=== PATIENT | female | born 1965 | race Caucasian/White ===

== ENCOUNTER 2020-01-14 12:03 | Inpatient (IN) | payer OTHER ==
[~2020-01-14] VITALS: Ht 167.6 cm; Wt 142.9 kg
[2020-01-14] VITALS (9 sets, daily range): BP systolic 108–138; BP diastolic 53–69
--- NOTE | 2020-01-14 12:15 | NUR ---
BIB [facility] FROM A CLINIC,S/P SYNCOPAL EPISODE. C/O WEAKNESS AND DIZZINESS X 2 WEEKS,BLOOOD SUGAR 216. PATIENT A/OX4, BREATHING EVEN AND UNLABORED, NO SOB NOTED, CHANGED INTO A GOWN, ATTACHED TO E [place] LAYER. DR. MURRIETA AT BEDSIDE FOR EVAL.
[2020-01-14] MEDS ORDERED: IV NS 0.9% 1,000 ML BAG IV ONE (12:30)
--- NOTE | 2020-01-14 12:30 | NUR ---
IV LINE ESTABLISHED, BLOOD DRAWN AND SENT TO LAB.
--- NOTE | 2020-01-14 12:40 | NUR ---
BOSTON CUTTER AT BEDSIDE FOR XRAY.
[2020-01-14 12:42] LABS: BASOPHILS % (AUTO) 0.9 % (0.0-2.0); EOSINOPHILS % (AUTO) 1.9 % (0.0-6.0); HEMATOCRIT 21 % (33-45); LYMPHOCYTES # (AUTO) 1.3 /CMM (0.8-4.8); LYMPHOCYTES % (AUTO) 16.2 % (20.0-44.0); MEAN CORPUSCULAR HGB CONC 27 g/dl (31.0-36.0); MEAN CORPUSCULAR VOLUME 62 fL (82-100); MONOCYTES % (AUTO) 6.3 % (2.0-12.0); NEUTROPHILS % (AUTO) 74.7 % (43.0-81.0); PLATELET COUNT (AUTO) 383 /CMM (150-450); RED BLOOD CELL COUNT(AUTO) 3.35 MIL/uL (4.0-5.2)
[2020-01-14 12:43] LABS: BASOPHILS # (AUTO) 0.1 /CMM (0.0-0.2); MONOCYTES # (AUTO) 0.5 /CMM (0.1-1.30)
[2020-01-14 12:44] LABS: CALCIUM, SERUM 9.6 mg/dL (8.5-10.1); CARBON DIOXIDE 25 mmol/L (21-32); CHLORIDE 104 mmol/L (98-107); CREATININE 1.7 mg/dL (0.6-1.3); GLUCOSE 186 mg/dL (74-106); POTASSIUM 4.1 mmol/L (3.5-5.1); SODIUM SERUM 141 mmol/L (136-145); UREA NITROGEN, BLOOD 30 mg/dL (7-18)
[2020-01-14 12:47] LABS: HEMOGLOBIN 5.6 g/dL (11.5-14.8)
--- NOTE | 2020-01-14 12:53 | NUR ---
PATIENT REFUSED TO HAVE AN ACCUCHECK DONE.
[2020-01-14] MEDS ORDERED: IV NS 0.9% 1,000 ML IV ONE ×2 (13:30)
[2020-01-14] MEDS ORDERED: AMLO5TAB9 PO (13:36)
[2020-01-14] MEDS ORDERED: ALBU18HF2 IH (13:36)
[2020-01-14] MEDS ORDERED: ASPI-1498 PO (13:36)
[2020-01-14] MEDS ORDERED: METO-357 PO (13:36)
[2020-01-14] MEDS ORDERED: HYDR-4077 PO (13:36)
[2020-01-14] MEDS ORDERED: NICO1PAT44 PO (13:36)
[2020-01-14] MEDS ORDERED: ATOR10TA PO (13:36)
--- NOTE | 2020-01-14 13:36 | NUR ---
paged dr. erik cespedes, waiting for call back
--- NOTE | 2020-01-14 13:46 | NUR ---
COVID RESULT: NEGATIVE
--- NOTE | 2020-01-14 14:02 | NUR ---
REPORT GIVEN TO SUHAIL DANIEL.
--- NOTE | 2020-01-14 14:15 | NUR ---
PATIENT TRANSFERRED TO ROOM 111-2 VIA ACLS PROTOCOL. IN STABLE CONDITION. BP IMPROVED.
[2020-01-14 14:28] LABS: IRON, SERUM 11 ug/dl (50-175); TOTAL IRON BINDING CAPACITY 467 ug/dl (250-450)
--- NOTE | 2020-01-14 14:35 | NUR ---
RN ADMITTING NOTES Received patient from ER via rashlie, Patient is A/Ox4, on room air , SPO2 is 100%, NO SOB, no resp distress noted, complain of weakness, denies pain or discomfort. TELEMONITOR BOX is attached, readings is Sinus Rhythm 94s, IV line noted on R hand, G 18, intact and patent, Skin is intact, bed in lowest position, safety measures in place, call light i reach, will cont to monitor
--- NOTE | 2020-01-14 15:00 | NUR ---
Waiting for blood to be ready
[2020-01-14] MEDS ORDERED: ACETAMINOPHEN 650 MG/20.3 ML UDC NG PRN (15:30)
[2020-01-14] MEDS ORDERED: ONDANSETRON HCL/PF 4 MG/2 ML VIAL IV PRN (15:30)
[2020-01-14] MEDS ORDERED: ACETAMINOPHEN 325 MG TABLET PO PRN (15:30)
[2020-01-14] MEDS: NICOTINE PATCH (21MG) 21 MG PATCH.TD24 TD SCH (15:58)
[2020-01-14] MEDS: PANTOPRAZOLE 40 MG TABLET.DR PO SCH ×2 (15:58→21:30)
[2020-01-14] MEDS ORDERED: IPRATROPIUM NEB FS 0.5 MG/2.5 ML AMPUL.NEB NEB PRN (16:00)
[2020-01-14] MEDS ORDERED: ALBUTEROL FS 2.5 MG/0.5 ML VIAL.NEB NEB PRN (16:00)
--- NOTE | 2020-01-14 16:00 | NUR ---
Spoke with Dr Del Valle need 2 units of blood, waiting for blood bank
--- NOTE | 2020-01-14 18:51 | NUR ---
Received phone call from the lab about blood: READY FOR MAJOR CASE DETECTIVE
--- NOTE | 2020-01-14 18:56 | NUR ---
Will endorse BLOOD TRANSFUSION TO PM SHIFT RN
--- NOTE | 2020-01-14 18:56 | NUR ---
RN CLOSING NOTES Patient remains in bed, A/Ox4, watching TV, denies pain, denies SOB, no cough or distress noted, Medications given, patient had late lunch and dinnerMed recon is done by Dr Del Valle, . Safety measures in pace, bed in lowest position, call light in reach, HOB elevated, will endorse to P shift RN for DOROTEO
[2020-01-14 19:37] LABS: BAND % (MANUAL) 1 % (0.0-5.0); LYMPHOCYTES % (MANUAL) 25 % (16-48); MONOCYTES % (MANUAL) 3 % (0-11.0); NEUTROPHILS % (MANUAL) 71 (42-76)
[2020-01-14] MEDS: ATORVASTATIN 10 MG TABLET PO SCH (21:30)
--- NOTE | 2020-01-14 22:20 | NUR ---
2220 DR. MARIEE CALLED AND ASKED PATIENT OF OK TO PREP FOR COLONOSCOPY. PATIENT REFUSED STATING " I'M NOT POOPING BLOOD RIGHT NOW." PER DR. MARIEE HE WILL COME AND SEE PATIENT AND TALK TO HER AT BEDSIDE TOMORROW.
[2020-01-14] MEDS: ALBUTEROL FS 2.5 MG/0.5 ML VIAL.NEB NEB SCH (23:07)
[2020-01-14] MEDS: IPRATROPIUM NEB FS 0.5 MG/2.5 ML AMPUL.NEB NEB SCH (23:07)
[2020-01-15] VITALS (17 sets, daily range): BP systolic 98–166; BP diastolic 48–87
--- NOTE | 2020-01-15 05:55 | NUR ---
RN notes Alert and oriented, verbally able to communicate needs. In bed, comfortably resting with no distress noted. Room air well tolerated. Transfused two packs of RBC, tolerated well. No side effects noted. No complaint of pain or discomfort. Kept clean and dry. Will endorse to next shift for continuity of care.
[2020-01-15] MEDS ORDERED: SORBITOL SOLUTION 30 ML PO ONE (06:00)
--- NOTE | 2020-01-15 07:05 | NUR ---
RN NOTES RECEIVED ON BED, RESTING IN BED, A/Ox4, ON RA , RESPIRATION EVEN AND UNLABORED, ON TELE SR HR IN 90'S , NO DISTRESS NOTED, SR UP X3, CALL LIGHT WITHIN EASY REACH, BED LOCKED AND IN LOWEST POSITION, CONTINUE TO MONITOR.
[2020-01-15] MEDS: ALBUTEROL FS 2.5 MG/0.5 ML VIAL.NEB NEB SCH ×4 (07:35→23:55)
[2020-01-15] MEDS: IPRATROPIUM NEB FS 0.5 MG/2.5 ML AMPUL.NEB NEB SCH ×4 (07:35→23:54)
[2020-01-15] MEDS: PANTOPRAZOLE 40 MG TABLET.DR PO SCH ×4 (08:22→21:10)
[2020-01-15] MEDS: NICOTINE PATCH (21MG) 21 MG PATCH.TD24 TD SCH (08:22)
[2020-01-15] MEDS ORDERED: NICOTINE PATCH (14MG) 14 MG PATCH.TD24 TD SCH (09:00)
[2020-01-15 09:11] LABS: BASOPHILS # (AUTO) 0.1 /CMM (0.0-0.2); BASOPHILS % (AUTO) 0.8 % (0.0-2.0); EOSINOPHILS % (AUTO) 2.8 % (0.0-6.0); HEMATOCRIT 23 % (33-45); LYMPHOCYTES # (AUTO) 1.2 /CMM (0.8-4.8); LYMPHOCYTES % (AUTO) 19.3 % (20.0-44.0); MEAN CORPUSCULAR HGB CONC 29 g/dl (31.0-36.0); MEAN CORPUSCULAR VOLUME 68 fL (82-100); MONOCYTES # (AUTO) 0.4 /CMM (0.1-1.30); MONOCYTES % (AUTO) 5.9 % (2.0-12.0); NEUTROPHILS # (AUTO) 4.6 /CMM (1.8-8.9); NEUTROPHILS % (AUTO) 71.2 % (43.0-81.0); PLATELET COUNT (AUTO) 276 /CMM (150-450); RED BLOOD CELL COUNT(AUTO) 3.44 MIL/uL (4.0-5.2); WHITE BLOOD COUNT (AUTO) 6.5 K/uL (4.3-11.0)
[2020-01-15 09:25] LABS: ALBUMIN 2.5 g/dL (3.4-5.0); BILIRUBIN,TOTAL 0.3 mg/dL (0.2-1.0); CREATININE 1.2 mg/dL (0.6-1.3); MAGNESIUM 2.1 mg/dL (1.8-2.4); TOTAL PROTEIN, SERUM 6.4 g/dL (6.4-8.2)
[2020-01-15 09:34] LABS: HEMOGLOBIN 6.8 g/dL (11.5-14.8)
--- NOTE | 2020-01-15 09:50 | NUR ---
RN NOTES DR MANDUJANO NOTIFED REGARDING HEMOGLOBIN 6.8. NEW ORDER RECEIVED .CONTINUE TO MONITOR.
--- NOTE | 2020-01-15 12:45 | NUR ---
RN NOTES PT REFUSED FREQUENT VSS CHECK DURING BLOOD TRANSFUSION, STATED BP CUFF IS PAINFUL TO HER ARM . PT AGREED TO HAVE VSS CHECK Q 30 TO ONE HOUR CHECK , CONTINUE TO MONITOR .
[2020-01-15] MEDS: AMLODIPINE BESYLATE 5 MG TABLET PO SCH (17:22)
[2020-01-15] MEDS: CYANOCOBALAMIN 1,000 MCG/ML VIAL IM SCH (18:18)
--- NOTE | 2020-01-15 18:21 | NUR ---
RN NOTES PT RECEIVED TWO UNITS OF PRBC'S ON THIS SHIFT, TOLERATED WELL, NO COMPLICATION NOTED , DENIES ANY DISTRESS, PT IS UP TO BATHROOM WITH ASSIST , VOIDING WELL, SR UP x3, CALL LIGHT WITHIN EASY REACH, BED LOCKED AND IN LOWEST POSITION, WILL ENDORSE TO DRY ROOM OPERATOR NURSE FOR CONTINUITY OF CARE
[2020-01-15] MEDS ORDERED: PEG 3350/NA SULF,BICARB,CL/KCL 4,000 ML BOTTLE PO ONE ×2 (20:00)
--- NOTE | 2020-01-15 20:00 | NUR ---
RN NOTES RECEIVED in BED, A/Ox4, ON RA , RESPIRATION EVEN AND UNLABORED, ON TELE SR HR IN 91S , NO DISTRESS NOTED, SR UP X2 CALL LIGHT WITHIN EASY REACH, BED LOCKED AND IN LOWEST POSITION, CONTINUE TO MONITOR. PTS NPO EXCEPT MEDS ,PTS GOING FOR EGD AND COLONOSCOPY IN AM NPO POST MN INSTRUCTED , GOLITELY STARTED AT 8PM FOR BOWEL PREP ,PTS ABLE TO DRINK .ALL NEEDS ATTENDED TOO ,PER ENDORSEMENT PT RECEIVED TOTAL OF 4 UNITS OF PRBC ,FOR CBC BMP IN AM.V/S STABLE AND AFEBRILE WILL CONTINUE TO MONITOR PTS.PROTONIX MEDICATION WAS NOT GIVEN D/T PTS REFUSAL .
[2020-01-15] MEDS: ATORVASTATIN 10 MG TABLET PO SCH ×3 (21:10→22:27)
--- NOTE | 2020-01-15 22:00 | NUR ---
gema rn notes pts noted with no change of condition , no sob no distress noted no c/o of pain needs attended too will continue to monitor pts.
[2020-01-16] VITALS: BP 122/85
--- NOTE | 2020-01-16 01:00 | NUR ---
gema rn notes golitely almost done ,pts had bowel movement x 1 will continue to monitor.
[2020-01-16 04:00] VITALS: BP 146/88
--- NOTE | 2020-01-16 05:33 | NUR ---
gema rn notes had bowel movement noted with lliquid brown color output.
[2020-01-16] MEDS ORDERED: SORBITOL SOLUTION 30 ML PO ONE (06:00)
--- NOTE | 2020-01-16 06:47 | NUR ---
OSIEL RN NOTES PATIENT REMAINS IN ROOM. R/A A/OX 4 NO SIGNS OF RESPIRATORY DISTRESS. SAFETY MEASURES IMPLEMENTED, BED IN LOWEST POSITION, LOCKED, SIDE RAILS UP, CALL LIGHT WITHIN REACH. ALL NEEDS AND ORDERS ADDRESSED DURING THE SHIFT. ALL DUE MEDS GIVEN ORDERED & SCHEDULED ; PATIENT TOLERATED WELL.PATIENT KEPT CLEAN AND COMFORTABLE WITHIN THE SHIFT. ENDORSED TO INCOMING SHIFT RN FOR CONTINUITY OF CARE.PTS FOR EGD COLONOSCOPY TODAY , CONSENTED FOR PROCEDURE NPO MAINTAINED.
[2020-01-16 06:48] LABS: BASOPHILS # (AUTO) 0.1 /CMM (0.0-0.2); EOSINOPHILS % (AUTO) 3.6 % (0.0-6.0); HEMATOCRIT 28 % (33-45); HEMOGLOBIN 8.6 g/dL (11.5-14.8); LYMPHOCYTES # (AUTO) 1.6 /CMM (0.8-4.8); LYMPHOCYTES % (AUTO) 30.1 % (20.0-44.0); MEAN CORPUSCULAR HGB CONC 31 g/dl (31.0-36.0); MEAN CORPUSCULAR VOLUME 70 fL (82-100); MONOCYTES # (AUTO) 0.5 /CMM (0.1-1.30); MONOCYTES % (AUTO) 9.4 % (2.0-12.0); NEUTROPHILS # (AUTO) 2.9 /CMM (1.8-8.9); NEUTROPHILS % (AUTO) 55.9 % (43.0-81.0); PLATELET COUNT (AUTO) 272 /CMM (150-450); RED BLOOD CELL COUNT(AUTO) 3.99 MIL/uL (4.0-5.2); WHITE BLOOD COUNT (AUTO) 5.2 K/uL (4.3-11.0)
[2020-01-16 07:09] LABS: CREATININE 1.1 mg/dL (0.6-1.3); POTASSIUM 4.2 mmol/L (3.5-5.1)
[2020-01-16] MEDS: IPRATROPIUM NEB FS 0.5 MG/2.5 ML AMPUL.NEB NEB SCH ×3 (07:35→23:30)
[2020-01-16] MEDS: ALBUTEROL FS 2.5 MG/0.5 ML VIAL.NEB NEB SCH ×3 (07:35→23:30)
--- NOTE | 2020-01-16 07:55 | NUR ---
PT REFUSED RESP TX ATT. NO S/S OF SOB NOTED. WILL CONT TO MONITOR Addendum: 01/16/20 at 0756 by MG RICHARDSON RT Amended: Links added.
[2020-01-16] MEDS: CYANOCOBALAMIN 1,000 MCG/ML VIAL IM SCH (08:19)
[2020-01-16] MEDS: PANTOPRAZOLE 40 MG TABLET.DR PO SCH ×2 (08:19→21:00)
[2020-01-16] MEDS: NICOTINE PATCH (21MG) 21 MG PATCH.TD24 TD SCH (08:19)
[2020-01-16] MEDS ORDERED: ANESTHESIA TRAY IN PYXIS 1 EA TRAY MC ONE (10:19)
[2020-01-16 10:26] VITALS: BP 160/84
--- NOTE | 2020-01-16 10:33 | NUR ---
0800 pt was received asleep in bed, refused to have her VS checked at this time. There is still about 800 cc left in the Colyte bottle. Pt stated her last BM was clear but RN was not able to see because pt flushed the toilet. Pt was discouraged to drink anymore after 730, she just had some ice chips. 1036 pt was taken to OR for colonoscopy and EGD, consents are in the chart. VS was taken and recorded. MANAGER CREDIT was informed pt's last fluid intake was at 0730 with some ice chips and was not able to finish the Colyte. Addendum: 01/16/20 at 1531 by YE REYES RN 1530 came back from COLO/EGD at 1315, per Amina RN showed gastric erosion, taken biopsies from stomach and colon. Was given Propofol by wolf, Pt is sleepy but easily awaken, oriented x 4. Denies any pain Addendum: 01/16/20 at 1829 by YE REYES RN 1827 pt came back from COLO/EGD at 1330. Per MANAGER CREDIT pt had gastritis and biopsies were done from the stomach and colon. Also advised to follow up to Dr. Walsh's office upon discharge. Pt had dinner and late lunch, tolerated well. Pt denies any pain or discomfort aside from being tired due to anes. Will give report to restaurant shift supervisor for DOROTEO.
[2020-01-16] MEDS ORDERED: FAMOTIDINE/PF INJ 20 MG/2 ML VIAL IV ONE (11:28)
[2020-01-16 16:00] VITALS: BP 162/89
[2020-01-16] MEDS: AMLODIPINE BESYLATE 5 MG TABLET PO SCH (17:49)
[2020-01-16 20:00] VITALS: BP 140/90
--- NOTE | 2020-01-16 20:00 | NUR ---
OSIEL RN NOTES RECEIVED in BED, A/Ox4, ON RA , RESPIRATION EVEN AND UNLABORED, ON TELE SR HR IN 90'S , NO DISTRESS NOTED, SR UP X2 CALL LIGHT WITHIN EASY REACH, BED LOCKED AND IN LOWEST POSITION, CONTINUE TO MONITOR,PTS S/P EGD AND COLONOSCOPY TODAY WITH FINDING GASTRIC EROISION NO BLEEDING NOTED .ALL NEEDS ATTENDED TOO ,V/S STABLE AND AFEBRILE WILL CONTINUE TO MONITOR .
--- NOTE | 2020-01-16 21:09 | NUR ---
OSIEL RN NOTES PROTONIX MEDICATION FOR 9PM DOSE WAS NOT GIVEN D/T PTS REFUSAL.
--- NOTE | 2020-01-16 22:00 | NUR ---
gema rn notes due med given as ordered, pt in bed awake no randal noted at this time .
[2020-01-16] MEDS: ATORVASTATIN 10 MG TABLET PO SCH (22:29)
[2020-01-17] VITALS: BP 136/85
[2020-01-17 04:00] VITALS: BP 140/80
--- NOTE | 2020-01-17 05:09 | NUR ---
OSIEL RN NOTES PT IN BED SLEEPING COMFORTABLY,NO DOROTEO NOTED.
--- NOTE | 2020-01-17 05:11 | NUR ---
OSIEL RN NOTES PTS IN BED AWAKE V/S STABLE AFEBRILE NO SOB NO DISTRESS NOTED WILL ENDORSE TO RN DAY SHIFT FOR CONTINUITY OF CARE.
[2020-01-17 07:05] LABS: BASOPHILS # (AUTO) 0.1 /CMM (0.0-0.2); BASOPHILS % (AUTO) 2.1 % (0.0-2.0); EOSINOPHILS % (AUTO) 3.8 % (0.0-6.0); HEMATOCRIT 29 % (33-45); LYMPHOCYTES # (AUTO) 1.3 /CMM (0.8-4.8); LYMPHOCYTES % (AUTO) 23.6 % (20.0-44.0); MEAN CORPUSCULAR HGB CONC 31 g/dl (31.0-36.0); MEAN CORPUSCULAR VOLUME 69 fL (82-100); MONOCYTES # (AUTO) 0.5 /CMM (0.1-1.30); NEUTROPHILS # (AUTO) 3.4 /CMM (1.8-8.9); NEUTROPHILS % (AUTO) 61.5 % (43.0-81.0); PLATELET COUNT (AUTO) 272 /CMM (150-450); RED BLOOD CELL COUNT(AUTO) 4.22 MIL/uL (4.0-5.2); WHITE BLOOD COUNT (AUTO) 5.5 K/uL (4.3-11.0)
[2020-01-17] MEDS: IPRATROPIUM NEB FS 0.5 MG/2.5 ML AMPUL.NEB NEB SCH (07:35)
[2020-01-17] MEDS: ALBUTEROL FS 2.5 MG/0.5 ML VIAL.NEB NEB SCH (07:35)
--- NOTE | 2020-01-17 07:38 | NUR ---
RELATIONS MGR NOTE PATIENT IN BED ALERT, ORIENTED X4 ON RA, NO SOb NOTED AT THIS TIME ,ON TELEMONITOR SR , RT Ac hl intact and flushed well ,no c\o discomfort wants to go home ,will report to md , all needs attended , bed in lowest and locked position, call light withihn reach ,plan of care discussed with patient
[2020-01-17 08:00] VITALS: BP 154/94
[2020-01-17] MEDS: CYANOCOBALAMIN 1,000 MCG/ML VIAL IM SCH (08:13)
[2020-01-17] MEDS: PANTOPRAZOLE 40 MG TABLET.DR PO SCH (08:14)
[2020-01-17 08:29] LABS: ALBUMIN 2.8 g/dL (3.4-5.0); BILIRUBIN,TOTAL 0.5 mg/dL (0.2-1.0); CALCIUM, SERUM 8.3 mg/dL (8.5-10.1); CREATININE 1.1 mg/dL (0.6-1.3); POTASSIUM 4.5 mmol/L (3.5-5.1); TOTAL PROTEIN, SERUM 6.8 g/dL (6.4-8.2)
[2020-01-17] MEDS: NICOTINE PATCH (21MG) 21 MG PATCH.TD24 TD SCH (09:14)
--- NOTE | 2020-01-17 09:19 | NUR ---
WATER SYSTEM OPERATOR NOTE WANTS TO GO SMOKING BUT EXPLAINED THAT RISK OF SMOKING BUT STILL NONCOMPLIANT AND WANT TO SMOKE, SIGNED CONSENT FOR SMOKING, WILL INFORM TO MD
--- NOTE | 2020-01-17 10:57 | NUR ---
telephone clerk note dr cespedes at bedside with order to d\c home ,order carried out , d\c instruction given understood , px given ,and explained home and new medication and possible side effects, education form about medication and side effects given and explained to patient, tele removed , belonging sighed, instructed to f\u with gi transmission supervisor and primary care doctor
[2020-01-17 12:00] VITALS: BP 154/94
--- NOTE | 2020-01-17 12:30 | NUR ---
color television console monitor note discharge instruction given to patient, understood ,hl is removed, no bleeding noted tele is removed bellowing signed, taken patient to lobby with stable condition, friend nelly poultry picking machine tender patient, px given to patient and explained how to use ,understood
[2020-01-17 14:06] LABS: EOSINOPHILS % (MANUAL) 1 % (0-4); LYMPHOCYTES % (MANUAL) 26 % (16-48); MONOCYTES % (MANUAL) 5 % (0-11.0); NEUTROPHILS % (MANUAL) 68 (42-76)
== END 2020-01-17 13:00 | disposition home or self-care (01) | DRG 663 ==
LOC: ER 12:07 → TELE1 13:55 → MERGE 13:55 → TELE1 14:24 → TELE-TD 20:45 → TELE1 01-17 06:37
PROVIDERS: ADMIT Internal Medicine; ATTEND Internal Medicine
DX: D50.9 Iron deficiency anemia, unspecified (principal); I12.9 Hypertensive chronic kidney disease with stage 1 through stage 4 chronic kidney disease, or unspecified chronic kidney disease; F17.210 Nicotine dependence, cigarettes, uncomplicated; J44.9 Chronic obstructive pulmonary disease, unspecified; I25.2 Old myocardial infarction; E66.01 Morbid (severe) obesity due to excess calories; Z68.43 Body mass index [BMI] 50.0-59.9, adult; E11.22 Type 2 diabetes mellitus with diabetic chronic kidney disease; E53.8 Deficiency of other specified B group vitamins; I25.10 Atherosclerotic heart disease of native coronary artery without angina pectoris; F32.9 Major depressive disorder, single episode, unspecified; E78.5 Hyperlipidemia, unspecified; N18.2 Chronic kidney disease, stage 2 (mild); N17.9 Acute kidney failure, unspecified; K64.8 Other hemorrhoids; B18.2 Chronic viral hepatitis C; K25.9 Gastric ulcer, unspecified as acute or chronic, without hemorrhage or perforation; K29.70 Gastritis, unspecified, without bleeding; K44.9 Diaphragmatic hernia without obstruction or gangrene; E11.65 Type 2 diabetes mellitus with hyperglycemia; K57.30 Diverticulosis of large intestine without perforation or abscess without bleeding; I95.9 Hypotension, unspecified
CPT/HCPCS: 36415; 71045-TC; 80048-TC; 80053-TC; 82378; 83540-TC; 83735-TC; 84443-TC; 84484-TC; 85025-TC; 85045-TC; 85610-TC; 86803; 86850-TC; 87081-TC; 88305-TC; 93307-TC; 94799-TC; C9803-CS; G0378; J0330; J2704; J3420; J3490; J7030; J7040; J7050; P9016-BL

== ENCOUNTER 2020-11-10 02:20 | Emergency (ER) | payer OTHER ==
[~2020-11-10] VITALS: Ht 170.2 cm; Wt 136.1 kg
[~2020-11-10 02:20] MED LIST: ALBU18HF2 IH; AMLO-212 PO; ASPI-1498 PO; ATOR10TA PO; HYDR-4077 PO; METO-357 PO; NICO1PAT44 PO
[2020-11-10 02:26] VITALS: BP 148/84
[2020-11-10] MEDS ORDERED: SULF1TAB48 PO (02:37)
== END 2020-11-10 02:55 | disposition home or self-care (01) ==
LOC: ER 02:20
DX: A49.02 Methicillin resistant Staphylococcus aureus infection, unspecified site (principal); I10 Essential (primary) hypertension; D64.9 Anemia, unspecified; F17.200 Nicotine dependence, unspecified, uncomplicated; Z98.890 Other specified postprocedural states; Z90.49 Acquired absence of other specified parts of digestive tract; Z88.8 Allergy status to other drugs, medicaments and biological substances; Z60.2 Problems related to living alone; Z79.899 Other long term (current) drug therapy

== ENCOUNTER 2021-01-20 15:11 | Emergency (ER) | payer OTHER ==
[~2021-01-20] VITALS: Ht 170.2 cm; Wt 140.6 kg
[~2021-01-20 15:11] MED LIST changes: +SULF1TAB48 PO
[2021-01-20 15:23] VITALS: BP 165/96
--- NOTE | 2021-01-20 15:27 | NUR ---
OF TO ER CHAIR 2, C/O RT SHOULDER PAIN S/P REACHING FROM BEHIND, AAOX4, BREATHING EVEN AND NON LABORED
[2021-01-20] MEDS ORDERED: IBUPROFEN 600 MG TABLET ONE (16:05)
[2021-01-20] MEDS: IBUPROFEN 600 MG TABLET PO ONE (16:10)
[2021-01-20] MEDS ORDERED: NAPR-1009 PO (16:51)
== END 2021-01-20 17:00 | disposition home or self-care (01) ==
LOC: ER 15:14
DX: M25.511 Pain in right shoulder (principal); I10 Essential (primary) hypertension; F17.200 Nicotine dependence, unspecified, uncomplicated; Z98.890 Other specified postprocedural states; Z90.49 Acquired absence of other specified parts of digestive tract; Z60.2 Problems related to living alone; Z79.82 Long term (current) use of aspirin; Z79.899 Other long term (current) drug therapy
CPT/HCPCS: 73030-TC

== ENCOUNTER 2021-02-22 17:38 | Emergency (ER) | payer OTHER ==
[~2021-02-22] VITALS: Ht 170.2 cm; Wt 140.6 kg
[~2021-02-22 17:38] MED LIST changes: +NAPR-1009 PO
--- NOTE | 2021-02-22 18:41 | NUR ---
DR PEREZ AT THE BEDSIDE
--- NOTE | 2021-02-22 18:42 | NUR ---
STARTED LINE, BLOOD SPECIMEN COLLECTED AND SENT TO THE LAB. THE LINE IS SALINE LOCKED.
[2021-02-22 18:49] LABS: BASOPHILS # (AUTO) 0.1 K/uL (0.0-0.2); BASOPHILS % (AUTO) 1.2 % (0.0-2.0); HEMATOCRIT 27 % (33-45); HEMOGLOBIN 7.5 g/dL (11.5-14.8); LYMPHOCYTES # (AUTO) 1.4 K/uL (0.8-4.8); LYMPHOCYTES % (AUTO) 19.4 % (20.0-44.0); MEAN CORPUSCULAR HGB CONC 28 g/dl (31.0-36.0); MEAN CORPUSCULAR VOLUME 63 fL (82-100); MONOCYTES # (AUTO) 0.7 K/uL (0.1-1.30); NEUTROPHILS # (AUTO) 4.7 K/uL (1.8-8.9); NEUTROPHILS % (AUTO) 64.4 % (43.0-81.0); PLATELET COUNT (AUTO) 401 K/uL (150-450); RED BLOOD CELL COUNT(AUTO) 4.33 MIL/uL (4.0-5.2); WHITE BLOOD COUNT (AUTO) 7.3 K/uL (4.3-11.0)
[2021-02-22 19:00] LABS: CALCIUM, SERUM 8.6 mg/dL (8.5-10.1); CREATININE 1.4 mg/dL (0.6-1.3); POTASSIUM 4.2 mmol/L (3.5-5.1)
[2021-02-22 19:06] LABS: ALBUMIN 2.8 g/dL (3.4-5.0); BILIRUBIN,DIRECT 0.1 mg/dL (0.0-0.2); BILIRUBIN,TOTAL 0.2 mg/dL (0.2-1.0); TOTAL PROTEIN, SERUM 7.8 g/dL (6.4-8.2)
--- NOTE | 2021-02-22 19:16 | NUR ---
REPORT GIVEN TO NURSE LEA FOR DOROTEO
--- NOTE | 2021-02-22 20:28 | NUR ---
Patient discharged to home in stable condition. Written and verbal after care instructions given. Patient verbalizes understanding of instruction.
[2021-02-22 20:31] LABS: EOSINOPHILS % (MANUAL) 5 % (0-4); LYMPHOCYTES % (MANUAL) 24 % (16-48); MONOCYTES % (MANUAL) 10 % (0-11.0); NEUTROPHILS % (MANUAL) 61 (42-76)
[2021-02-23 15:36] VITALS: BP 154/85
== END 2021-02-22 20:28 | disposition home or self-care (01) ==
LOC: ER 17:38
DX: D64.9 Anemia, unspecified (principal); E78.5 Hyperlipidemia, unspecified; I10 Essential (primary) hypertension; F17.200 Nicotine dependence, unspecified, uncomplicated; Z90.49 Acquired absence of other specified parts of digestive tract; Z98.890 Other specified postprocedural states; Z60.2 Problems related to living alone; Z79.899 Other long term (current) drug therapy; Z79.82 Long term (current) use of aspirin
CPT/HCPCS: 36415; 80048-TC; 80076-TC; 83690-TC; 85025-TC; 85730-TC; 86850-TC

== ENCOUNTER 2022-01-31 09:27 | Inpatient (IN) | payer OTHER ==
[~2022-01-31] VITALS: Ht 170.2 cm; Wt 136.1 kg
--- NOTE | 2022-01-31 09:41 | NUR ---
DR ADAMS AT BEDSIDE FOR EVAL
--- NOTE | 2022-01-31 09:45 | NUR ---
TECH AT BEDSIDE FOR EKG
--- NOTE | 2022-01-31 09:47 | NUR ---
CHEMISTRY LAB INSTRUCTOR AT BEDSIDE FOR XRAY
[2022-01-31 09:51] LABS: ABG BASE EXCESS 0.3 mmol/L; ABG PCO2 34.6 mmHg (35.0-45.0); ABG PH 7.455 (7.350-7.450); ABG PO2 69.6 mmHg (75.0-100.0); COHb 0.9 % (0.5-1.5); MetHb 0.1 % (0.0-1.5); O2Hb 92.4 % (94.0-97.0); SITE, ABG Right Brachial; VENT MODE, BG NASAL CANNULA
--- NOTE | 2022-01-31 09:51 | NUR ---
MOVE SHEET SUBMITTED
[2022-01-31] MEDS ORDERED: ONDANSETRON HCL/PF 4 MG/2 ML VIAL ONE (09:52)
[2022-01-31] MEDS ORDERED: CEFTRIAXONE 1GM BAG (ER ONLY) 50 ML IV ONE ×2 (09:52→10:00)
[2022-01-31] MEDS ORDERED: HYDROMORPHONE 1 MG/1 ML DISP.SYRIN ONE (09:58)
[2022-01-31] MEDS ORDERED: ONDANSETRON HCL/PF 4 MG/2 ML VIAL IVP ONE (10:00)
[2022-01-31] MEDS ORDERED: AZITHROMYCIN 500 MG in IV D5W 250 ML IV ONE (10:00)
[2022-01-31] MEDS ORDERED: HYDROMORPHONE 1 MG/1 ML DISP.SYRIN IV ONE (10:00)
[2022-01-31 10:07] LABS: BASOPHILS # (AUTO) 0.1 K/uL (0.0-0.2); BASOPHILS % (AUTO) 0.5 % (0.0-2.0); EOSINOPHILS % (AUTO) 1.8 % (0.0-6.0); HEMATOCRIT 36 % (33-45); HEMOGLOBIN 10.9 g/dL (11.5-14.8); LYMPHOCYTES # (AUTO) 0.7 K/uL (0.8-4.8); MEAN CORPUSCULAR HGB CONC 30 g/dl (31.0-36.0); MEAN CORPUSCULAR VOLUME 71 fL (82-100); MONOCYTES # (AUTO) 0.9 K/uL (0.1-1.30); MONOCYTES % (AUTO) 6.4 % (2.0-12.0); NEUTROPHILS # (AUTO) 11.5 K/uL (1.8-8.9); NEUTROPHILS % (AUTO) 86.3 % (43.0-81.0); PLATELET COUNT (AUTO) 456 K/uL (150-450); RED BLOOD CELL COUNT(AUTO) 5.12 MIL/uL (4.0-5.2); WHITE BLOOD COUNT (AUTO) 13.3 K/uL (4.3-11.0)
[2022-01-31 10:16] LABS: CALCIUM, SERUM 9.2 mg/dL (8.5-10.1); CARBON DIOXIDE 29 mmol/L (21-32); CHLORIDE 97 mmol/L (98-107); CREATININE 1.2 mg/dL (0.6-1.3); GLUCOSE 166 mg/dL (74-106); SODIUM SERUM 134 mmol/L (136-145); UREA NITROGEN, BLOOD 13 mg/dL (7-18)
--- NOTE | 2022-01-31 10:19 | NUR ---
COVID SWAB COLLECTED AND SENT TO LAB
[2022-01-31 10:25] LABS: ALANINE AMINOTRANSFERASE 14 U/L (12-78); ALBUMIN 2.3 g/dL (3.4-5.0); ALKALINE PHOSPHATASE 98 U/L (46-116); ASPARTATE AMINOTRANSFERASE 28 U/L (15-37); BILIRUBIN,DIRECT 0.2 mg/dL (0.0-0.2); BILIRUBIN,TOTAL 0.6 mg/dL (0.2-1.0); TOTAL PROTEIN, SERUM 7.9 g/dL (6.4-8.2)
--- NOTE | 2022-01-31 10:55 | NUR ---
URINE SAMPLE COLLECTED AND SENT TO LAB
[2022-01-31 11:23] LABS: BILIRUBIN,URINE MODERATE (NEGATIVE); COLOR,URINE YELLOW (YELLOW); LEUKOCYTE ESTERASE ,URINE NEGATIVE (NEGATIVE); NITRITE, URINE NEGATIVE (NEGATIVE); PROTEIN,URINE 100 mg/dl (NEGATIVE); UGLUCOSE NEGATIVE (NEGATIVE)
[2022-01-31] MEDS ORDERED: IPRATROPIUM NEB FS 0.5 MG/2.5 ML AMPUL.NEB NEB PRN (12:00)
[2022-01-31] MEDS ORDERED: ZOLPIDEM TARTRATE 5 MG TABLET PO PRN (12:00)
[2022-01-31] MEDS ORDERED: HYDROCODONE/APAP 10/325MG TABLET PO PRN (12:00)
[2022-01-31] MEDS ORDERED: ACETAMINOPHEN 325 MG TABLET PO PRN (12:00)
[2022-01-31] MEDS ORDERED: CEFTRIAXONE 1 G in IV D5W 50 ML IV SCH (12:00)
[2022-01-31] MEDS ORDERED: ALBUTEROL FS 2.5 MG/0.5 ML VIAL.NEB NEB PRN (12:00)
[2022-01-31] MEDS ORDERED: ONDANSETRON HCL/PF 4 MG/2 ML VIAL IVP PRN (12:00)
[2022-01-31] MEDS ORDERED: HYDROCODONE/APAP 5/325MG TABLET PO PRN (12:00)
[2022-01-31] MEDS ORDERED: Z GUARD REMEDY 4 OZ OINT TP PRN (12:00)
[2022-01-31] MEDS ORDERED: MAGNESIUM HYDROXIDE 30 ML UDC PO PRN (12:00)
[2022-01-31] MEDS ORDERED: MAG HYDROX/AL HYDROX/SIMETH 30 ML UDC PO PRN (12:00)
[2022-01-31 12:04] LABS: BACTERIA,URINE Few /HPF (None Seen); HYALINE CASTS, URINE Few /LPF (None Seen); SQUAMOUS EPITHELIAL CELL,UR Moderate /HPF (None Seen)
--- NOTE | 2022-01-31 12:10 | NUR ---
SPOKE WITH KAREN ELLIS [phone] GOT VERBAL AUTHORIATION [id number]
--- NOTE | 2022-01-31 13:20 | NUR ---
[facility] CALLED COMPLIANCE EXAMINER PAGED.
--- NOTE | 2022-01-31 13:22 | NUR ---
LATE LUNCH PROVIDED TO PT, JAMEL WELL
[2022-01-31] MEDS ORDERED: methylPREDNISolone SOD SUCC 40 MG/ML VIAL ONE (13:25)
[2022-01-31] MEDS: methylPREDNISolone SOD SUCC 125 MG/2ML VIAL IV SCH ×2 (13:26→21:24)
[2022-01-31 13:44] LABS: BAND % (MANUAL) 5 % (0.0-5.0); EOSINOPHILS % (MANUAL) 1 % (0-4); LYMPHOCYTES % (MANUAL) 5 % (16-48); MONOCYTES % (MANUAL) 4 % (0-11.0); NEUTROPHILS % (MANUAL) 85 (42-76)
--- NOTE | 2022-01-31 15:23 | NUR ---
BED GIVEN 308-1
--- NOTE | 2022-01-31 15:44 | NUR ---
PT REPORT GIVEN TO FREDY LANE
--- NOTE | 2022-01-31 16:09 | NUR ---
PT TRANSFERRED TO 308-1 VIA [place] ACLS PROTOCOL. WARM HANDOFF GIVEN TO FREDY LANE
--- NOTE | 2022-01-31 19:07 | NUR ---
RN NOTE PATIENT WAS TRANSFERRED TO UNIT FROM ER VIA [facility] WITH NO SIGNED OF DISTRESS NOTED. PATIENT WAS ORIENTED TO ROOM SETUP AND EDUCATED ON THE USE OF CALL LIGHT. V/S TAKEN, STABLE AND RECORDED. PATIENT REFUSED EXTERNAL SEWAGE RETICULATION DRAFTING OFFICER. PATIENT DID NOT WANT HER PURSED TO BE CHECKED, ONLY REMOVED MEDICATION FROM HER PURSED AND WAS TAKEN TO PHARMACY. SKIN ASSESSMENT DONE AND PICTURES TAKEN. PATIENT IS AWAKE IN BED RESTING, REFUSED TO WEAR GOWN, PATIENT STATED SHE DOES NOT WANT TO BE BOTHER. A/O X4. NO S/S OF PAIN NOTED AT THIS TIME ON 4L OXYGEN VIA NC, NO DISTRESS OR SHORTNESS OF BREATH NOTED. IV ACCESS ON LAC #20G-SL, INTACT, PATENT AND FLUSHING WELL. FALL AND SAFETY MEASURES IN PLACE, BED ALARM ON, BED IN LOW AND LOCK POSITION, CALL LIGHT AND TABLE WITHIN EASY REACH, SIDE RAILS UP X2. WILL ENDORSE TO LEAD OPERATOR.
[2022-01-31 19:57] VITALS: BP 126/75
--- NOTE | 2022-01-31 20:00 | NUR ---
TERMINAL WORKER NOTE PATIENT IS AWAKE AND LYING IN BED. REFUSES TO WEAR GOWN. A/O X4. NO DYSPNEA OR SOB NOTED. SpO2= 95% ON 4L OXYGEN VIA NC. IV ACCESS TO LAC #20G-SL. LINE IS INTACT AND PATENT. PATIENT ADAMANTLY REFUSES TO WEAR THE TELE MONITOR ALTHOUGH RISKS OF NOT WEARING IT HAVE BEEN EXPLAINED. SHE VERBALIZES UNDERSTANDING. SAFETY MEASURES IN PLACE: BED ALARM ON, BED IN LOWEST AND LOCKED POSITION, CALL LIGHT AND TABLE WITHIN EASY REACH, SIDE RAILS UP X2. WILL CONTINUE TO MONITOR.
[2022-01-31 20:41] VITALS: BP 102/60
[2022-01-31] MEDS: MORPHINE SULFATE INJ 2 MG/ML DISP.SYRIN IV PRN (21:24)
[2022-01-31 23:11] VITALS: BP 106/62
[2022-02-01] MEDS: MORPHINE SULFATE INJ 2 MG/ML DISP.SYRIN IV PRN ×3 (01:44→17:16)
[2022-02-01 04:10] VITALS: BP 121/70
[2022-02-01] MEDS: methylPREDNISolone SOD SUCC 125 MG/2ML VIAL IV SCH ×3 (05:51→20:53)
--- NOTE | 2022-02-01 06:36 | NUR ---
EVICTION SPECIALIST CLOSING NOTE PATIENT IS AWAKE AND LYING IN BED. REFUSES TO WEAR GOWN. A/O X4. NO DYSPNEA OR SOB NOTED. SpO2= 95% ON 4L OXYGEN VIA NC. IV ACCESS TO LAC #20G-SL. LINE IS INTACT AND PATENT. PATIENT ADAMANTLY REFUSES TO WEAR THE TELE MONITOR ALTHOUGH RISKS OF NOT WEARING IT HAVE BEEN EXPLAINED. SHE VERBALIZES UNDERSTANDING. ALL DUE MEDS GIVEN ORDERED. SAFETY MEASURES MAINTAINED: BED ALARM ON, BED IN LOWEST AND LOCKED POSITION, CALL LIGHT AND TABLE WITHIN EASY REACH, SIDE RAILS UP X2. WILL ENDORSE TO NEXT SHIFT FOR ODROTEO.
[2022-02-01 07:11] LABS: BASOPHILS % (AUTO) 0.1 % (0.0-2.0); HEMATOCRIT 35 % (33-45); HEMOGLOBIN 10.4 g/dL (11.5-14.8); LYMPHOCYTES # (AUTO) 0.6 K/uL (0.8-4.8); LYMPHOCYTES % (AUTO) 4.2 % (20.0-44.0); MEAN CORPUSCULAR HGB CONC 30 g/dl (31.0-36.0); MEAN CORPUSCULAR VOLUME 72 fL (82-100); MONOCYTES # (AUTO) 0.5 K/uL (0.1-1.30); MONOCYTES % (AUTO) 3.3 % (2.0-12.0); NEUTROPHILS % (AUTO) 92.4 % (43.0-81.0); PLATELET COUNT (AUTO) 471 K/uL (150-450); RED BLOOD CELL COUNT(AUTO) 4.84 MIL/uL (4.0-5.2); WHITE BLOOD COUNT (AUTO) 15.2 K/uL (4.3-11.0)
--- NOTE | 2022-02-01 07:20 | NUR ---
ms rn received on bed, awake,alert,oriented x4,not in any form of distress,respiration seven an dunlabored,no sob noted,refusing telemetry at this time, aware per shift supervisor film processing rn, will monitor patient.
[2022-02-01 07:45] LABS: CALCIUM, SERUM 8.9 mg/dL (8.5-10.1); CREATININE 1.3 mg/dL (0.6-1.3); MAGNESIUM 2.2 mg/dL (1.8-2.4); PHOSPHORUS 3.5 mg/dL (2.5-4.9); POTASSIUM 4.4 mmol/L (3.5-5.1)
[2022-02-01] MEDS: PANTOPRAZOLE 40 MG TABLET.DR PO SCH (07:45)
[2022-02-01 08:00] VITALS: BP 128/67
--- NOTE | 2022-02-01 08:49 | NUR ---
ms noble breakfast served,due meds given,tolerated well.
--- NOTE | 2022-02-01 09:43 | NUR ---
WOUND CARE CONSULT: RECEIVED CONSULT FOR VULVAR CANCER. PT ADAMANTLY REFUSED SKIN ASSESSMENT AND WAS YELLING AND CURSING AT NURSING STAFF. DR SO CALLED FOR SURGICAL CONSULT. IN AGREEMENT WITH PLAN OF CARE.
[2022-02-01] MEDS: CEFTRIAXONE 2 G in IV D5W 100 ML IV SCH (10:53)
--- NOTE | 2022-02-01 10:59 | NUR ---
ms rn was seen by dr. cifuentes, waiting for orders.
[2022-02-01] MEDS: AZITHROMYCIN 500 MG in IV D5W 250 ML IV SCH (11:53)
[2022-02-01 12:00] VITALS: BP 118/67
[2022-02-01] MEDS ORDERED: OMEG1CAP PO (13:04)
[2022-02-01] MEDS ORDERED: CLON0.1T PO (13:04)
[2022-02-01] MEDS ORDERED: MULT-754 PO (13:04)
[2022-02-01] MEDS ORDERED: ASPI-1169 PO (13:04)
[2022-02-01] MEDS ORDERED: FERR325T30 PO (13:04)
[2022-02-01 16:00] VITALS: BP 127/67
--- NOTE | 2022-02-01 18:17 | NUR ---
ms rn texted dr. cifuentes 2x for med recon,still waiting for him to do it.
--- NOTE | 2022-02-01 19:40 | NUR ---
FILTERING MACHINE TENDER HELPER OPENING NOTE RECEIVED PATIENT AWAKE, AND LYING IN BED. REFUSES TO WEAR GOWN. A/O X4. NO DYSPNEA OR SOB NOTED. NO C/O PAIN. PT ON 4L OXYGEN VIA NC, TOLERATING WELL. IV ACCESS TO L AC #20G-SL. LINE IS INTACT AND PATENT. PATIENT REFUSES TELE MONITOR. SAFETY MEASURES MAINTAINED: BED ALARM ON, BED IN LOWEST AND LOCKED POSITION, CALL LIGHT AND BED SIDE TABLE WITHIN EASY REACH, SIDE RAILS UP X2. WILL CONTINUE TO MONITOR PT.
[2022-02-01 20:02] VITALS: BP 129/78
[2022-02-01] MEDS: DAKINS QUARTER STRENGTH (0.125%) 480 ML BOTTLE TOP SCH (20:53)
[2022-02-02] MEDS: MORPHINE SULFATE INJ 2 MG/ML DISP.SYRIN IV PRN ×3 (03:26→14:52)
[2022-02-02 04:34] VITALS: BP 158/86
[2022-02-02] MEDS: methylPREDNISolone SOD SUCC 125 MG/2ML VIAL IV SCH ×3 (05:29→21:00)
--- NOTE | 2022-02-02 07:18 | NUR ---
LAMINATING MACHINE OPERATOR HELPER OPENING NOTE RECEIVED PATIENT ALERT AND ORIENTED X 4. ON ROOM AIR, WITH EQUAL AND UNLABORED BREATHING, WITH NO SIGNS OF RESPIRATORY DISTRESS. PATIENT REFUSED TO HAVE TELE MONITOR ON HER. ABLE TO MAKE NEEDS KNOWN. WITH IV ACCESS ON THE LEFT AC G20 ON SALINE LOCK, PATENT AND INTACT. COMFORT MEASURES PROVIDED. SAFETY MEASURES MAINTAINED: BED ALARM ON, BED IN LOWEST AND LOCKED POSITION, CALL LIGHT AND BED SIDE TABLE WITHIN EASY REACH, SIDE RAILS UP X2. WILL CONTINUE TO MONITOR PT.
[2022-02-02] MEDS: PANTOPRAZOLE 40 MG TABLET.DR PO SCH (08:06)
--- NOTE | 2022-02-02 08:20 | NUR ---
WINDOWS ARCHITECT CLOSING NOTE LEFT PATIENT IS AWAKE, LYING IN BED. A/O X4. NO DYSPNEA OR SOB NOTED. ON 4L OXYGEN VIA NC. IV ACCESS TO LAC #22G-SL. LINE IS INTACT AND PATENT. PATIENT IS STILL REFUSES TO WEAR THE TELE MONITOR . ALL DUE MEDS GIVEN ORDERED. SAFETY MEASURES MAINTAINED: BED ALARM ON, BED IN LOWEST AND LOCKED POSITION, CALL LIGHT AND TABLE WITHIN EASY REACH, SIDE RAILS UP X2. WILL ENDORSE TO NEXT SHIFT FOR DOROTEO. Addendum: 02/02/22 at 0832 by FARRUKH BANKS RN NOTE ENTERED AT 0700, INSTEAD OF 0831.
[2022-02-02] MEDS: DAKINS QUARTER STRENGTH (0.125%) 480 ML BOTTLE TOP SCH (09:00)
--- NOTE | 2022-02-02 10:15 | NUR ---
STERILE TECHNICIAN OPENING NOTES RECEIVED PATIENT ENDORSED BY FREDY MENSAH. PATIENT IS ON BED RESTING AND A/O X4, IRRITABLE. ON ROOM AIR TOLERATING WELL. NO SOB NOTED. NOT IN DISTRESS. WITH NO COMPLAINTS OF PAIN AT THIS TIME. WITH IV ACCESS AT THE LEFT AC G22 SALINE LOCKED, PATENT AND INTACT. PATIENT REFUSED TELE MONITOR. SAFETY MEASURES IN PLACED. CALL LIGHT WITHIN REACH. BED ON LOWEST LOCKED POSITION, SIDE RAILS UP X2. WILL CONTINUE TO MONITOR.
--- NOTE | 2022-02-02 10:15 | NUR ---
PLUG SHAPER HAND NOTE PATIENT ENDORSED TO VIVI DANIEL FOR CONTINUITY OF CARE. IN STABLE CONDITION.
[2022-02-02] MEDS: CEFTRIAXONE 2 G in IV D5W 100 ML IV SCH (10:38)
[2022-02-02] MEDS ORDERED: CLON0.1T PO (11:29)
[2022-02-02] MEDS ORDERED: METH4TAB17 PO (11:29)
[2022-02-02] MEDS ORDERED: AMOX1TAB16 PO (11:29)
[2022-02-02] MEDS: AZITHROMYCIN 500 MG in IV D5W 250 ML IV SCH (11:43)
--- NOTE | 2022-02-02 14:45 | NUR ---
RN NOTE PATIENT EXPRESSED EAGERNESS TO GO HOME AMA. ON O2 AT 4LPM VIA NASAL CANNULA. PATIENT DOESN'T HAVE O2 AT HOME. REMOVED O2 TO MONITOR FOR SATURATION. PATIENT WITHOUT O2 SATURATION WENT DOWN FORM 97% TO 91%. EXPLAINED TO THE PATIENT SHE IS NOT SAFE TO GO HOME PLUS SHE DOESN'T HAVE O2 AT HOME. PLACED THE O2 BACK AND REGULATED AT 4LPM VIA NASAL CANNULA. SHE DECIDED TO STAY IN THE HOSPITAL UNTIL SHE IS STABILIZED. WILL MONITOR.
--- NOTE | 2022-02-02 15:40 | NUR ---
RN NOTES DARYN HARRIS NP MADE AWARE THAT PATIENT IS REFUSING FOR DAKIN'S SOLUTION AND STATED SHE USES HYDROGEN PEROXIDE MIXED WITH WATER FOR WOUND CARE.
[2022-02-02 15:51] VITALS: BP 175/90
[2022-02-02] MEDS: MULTIVITAMIN/LUTEIN/MINERALS 1 TAB PO SCH (16:50)
[2022-02-02] MEDS: FERROUS SULFATE (325 MG) 325 MG/TAB TABLET PO SCH (16:50)
[2022-02-02] MEDS: CLONIDINE HCL 0.1 MG TABLET PO SCH (16:50)
--- NOTE | 2022-02-02 17:00 | NUR ---
RN NOTE PATIENT REFUSED WOUND CARE WITH DAKIN'S SOLUTION. STATED SHE WANTS HYDROGEN PEROXIDE WITH WATER. CT DAVIS MADE AWARE ALREADY ABOUT PATIENT'S PREFERENCE FOR WOUND CARE.
[2022-02-02] MEDS: ASPIRIN 81 MG TAB.CHEW PO SCH (17:21)
--- NOTE | 2022-02-02 18:33 | NUR ---
RN CLOSING NOTES PATIENT ON BED RESTING AND A/O X4, IRRITABLE. ON ROOM AIR TOLERATING WELL. NO SOB NOTED. NOT IN DISTRESS. WITH COMPLAINTS AT THE PERINEAL AREA AT THE SCALE OF 8/10. COMFORT MEASURES PROVIDED. PATIENT REFUSED FOR WOUND CARE. STATING SHE'S GOING TO WAIT FOR THE DOCTOR TO ORDER HYDROGEN PEROXIDE INSTEAD OF DAKINS SOLUTION. WITH IV ACCESS AT THE LEFT AC G22 SALINE LOCKED, PATENT AND INTACT. PATIENT REFUSED TELE MONITOR. DUE MEDS GIVEN. SAFETY MEASURES IN PLACED. CALL LIGHT WITHIN REACH. BED ON LOWEST LOCKED POSITION, SIDE RAILS UP X2. WILL ENDORSE TO NEXT SHIFT FOR DOROTEO.
[2022-02-02] MEDS: HYDROGEN PEROXIDE 480 ML BOTTLE TP SCH ×2 (19:00→21:00)
--- NOTE | 2022-02-02 19:35 | NUR ---
RN OPENING NOTE RECEIVED PATIENT IN BED; AWAKE, ALERT AND ORIENTED X 4, IRRITABLE. BREATHING EVEN AND UNLABORED. ON ROOM AIR; TOLERATING WELL. NOT IN ANY FORM OF RESPIRATORY DISTRESS. DENIES ANY PAIN OR DISCOMFORT AT THIS TIME. WITH IV ACCESS AT THE LEFT AC 22g; PATENT, INTACT AND SALINE LOCKED. REFUSED TELE MONITORING. SAFETY MEASURES IMPLEMENTED: CALL LIGHT AND TABLE WITHIN REACH, SIDE RAILS UP X2, BED IN LOWEST LOCKED POSITION. WILL CONTINUE TO MONITOR.
--- NOTE | 2022-02-02 23:44 | NUR ---
RN NOTE METHYPREDNISOLONE 60 MG IV HELD PER PATIENT'S REQUEST. "COME BACK IN THE MORNING, I'M SLEEPING" PATIENT VERBALIZED. WILL CONTINUE TO MONITOR.
[2022-02-03] MEDS: methylPREDNISolone SOD SUCC 125 MG/2ML VIAL IV SCH ×2 (05:42→12:09)
--- NOTE | 2022-02-03 06:40 | NUR ---
RN CLOSING NOTE PATIENT IN BED; AWAKE, A/O X 4. STABLE ON ROOM AIR. IN NO ACUTE DISTRESS NOTED. NO C/O ANY PAIN OR DISCOMFORT AT THIS TIME. WITH IV ACCESS AT LAC 22g; PATENT, INTACT AND SALINE LOCKED. REFUSED TELEMONITORING. SAFETY MEASURES MAINTAINED: SIDE RAILS UP X3, BED IN LOWEST LOCKED POSITION, CALL LIGHT AND TABLE WITHIN REACH. ENDORSED TO MORNING SHIFT FOR DOROTEO.
[2022-02-03 08:00] VITALS: BP 147/96
--- NOTE | 2022-02-03 08:00 | NUR ---
RN OPENING NOTE PATIENT RECEIVED IN BED, AO X 4, ABLE TO RESPONDS ALL STIMULI. IN NO ACUTE DISTRESS NOTED. RESPIRATORY EVEN AND UNLABORED ON ROOM AIR. SKIN IS WARM TO TOUCH, KEEP CLEAN/DRY. KEPT ELEVATED HOB FOR ENSURE AIRWAY AND ASPIRATION PRECAUTION, ALSO LOWEST POSITION OF THE BED, S/R UP X 2, BED ALARM IS ON AT ALL THE TIMES. ALL SAFETY PRECAUTION APPLIED. CALL LIGHT WITHIN REACH, WILL CONTINUE TO MONITOR.
[2022-02-03] MEDS: HYDROGEN PEROXIDE 480 ML BOTTLE TP SCH (09:00)
[2022-02-03] MEDS: MULTIVITAMIN/LUTEIN/MINERALS 1 TAB PO SCH (09:19)
[2022-02-03] MEDS: FERROUS SULFATE (325 MG) 325 MG/TAB TABLET PO SCH (09:19)
[2022-02-03 09:20] VITALS: BP 147/96
[2022-02-03] MEDS: CLONIDINE HCL 0.1 MG TABLET PO SCH (09:20)
[2022-02-03] MEDS: ASPIRIN 81 MG TAB.CHEW PO SCH (09:20)
[2022-02-03] MEDS: PANTOPRAZOLE 40 MG TABLET.DR PO SCH (09:20)
[2022-02-03] MEDS: CEFTRIAXONE 2 G in IV D5W 100 ML IV SCH (09:48)
[2022-02-03] MEDS: AZITHROMYCIN 500 MG in IV D5W 250 ML IV SCH (12:07)
[2022-02-03] MEDS: MORPHINE SULFATE INJ 2 MG/ML DISP.SYRIN IV PRN (12:11)
--- NOTE | 2022-02-03 16:00 | NUR ---
PATIENT SIGNED AMA AND LEFT FACILITY, WHO UNDERSTANDING ABOUT RISKS AND CONSEQUENCES INVOLVED IN LEAVING THE HOSPITAL AT THIS TIME, THE BENEFITS TREATMENT AND HOSPITALIZATION. REMOVED IV LINE AND ID BAND BEFORE PATIENT LEAVE. MADE AWARE.
--- NOTE | 2022-02-04 08:00 | NUR ---
RN OPENING NOTE PATIENT RECEIVED IN BED, AO X 4, ABLE TO RESPONDS ALL STIMULI. IN NO ACUTE DISTRESS NOTED. RESPIRATORY EVEN AND UNLABORED ON ROOM AIR. SKIN IS WARM TO TOUCH, KEEP CLEAN/DRY. KEPT ELEVATED HOB FOR ENSURE AIRWAY AND ASPIRATION PRECAUTION, ALSO LOWEST POSITION OF THE BED, S/R UP X 2, BED ALARM IS ON AT ALL THE TIMES. ALL SAFETY PRECAUTION APPLIED. CALL LIGHT WITHIN REACH, WILL CONTINUE TO MONITOR. Addendum: 02/04/22 at 1416 by DIVYA PABLO RN error Addendum: 02/04/22 at 1418 by DIVYA PABLO RN error
== END 2022-02-03 16:00 | disposition left against medical advice (07) | DRG 145 ==
LOC: ER 09:29 → TELE 15:35
PROVIDERS: ATTEND Internal Medicine
DX: J20.8 Acute bronchitis due to other specified organisms (principal); J96.01 Acute respiratory failure with hypoxia; J44.0 Chronic obstructive pulmonary disease with (acute) lower respiratory infection; R45.851 Suicidal ideations; C51.9 Malignant neoplasm of vulva, unspecified; J44.1 Chronic obstructive pulmonary disease with (acute) exacerbation; Z20.822 Contact with and (suspected) exposure to COVID-19; E66.01 Morbid (severe) obesity due to excess calories; Z53.29 Procedure and treatment not carried out because of patient's decision for other reasons; G47.33 Obstructive sleep apnea (adult) (pediatric); Z90.721 Acquired absence of ovaries, unilateral; Z90.49 Acquired absence of other specified parts of digestive tract; Z92.3 Personal history of irradiation; Z88.7 Allergy status to serum and vaccine; D50.9 Iron deficiency anemia, unspecified; I10 Essential (primary) hypertension; Z72.0 Tobacco use; Z86.19 Personal history of other infectious and parasitic diseases; Z79.899 Other long term (current) drug therapy; Z79.82 Long term (current) use of aspirin
CPT/HCPCS: 36415; 36600; 71045-TC; 80048-TC; 80076-TC; 81001; 82962-TC; 83605-TC; 83735-TC; 83880; 84100-TC; 84484-TC; 85025-TC; 85730-TC; 87040-TC; 87081-TC; 87086-TC; 94799-TC; 97116-TC; 97530-TC; A6253; A6403; C9803; G0378; J0456; J0696; J1170; J2270; J2405; J2920; J2930; J7050; J7060